=== PATIENT | male | born 1950 | race Caucasian/White ===

== ENCOUNTER 2018-05-28 12:15 | Emergency (ER) | payer MEDICARE ==
[~2018-05-28] VITALS: Ht 193 cm; Wt 109.0 kg
[~2018-05-28 12:15] MED LIST: CARV6.252 PO; FURO-93 PO; GABA100C PO; LISI5TAB7 PO; PHEN100C4 PO; SIMV40TA3 PO
[2018-05-28 12:20] VITALS: BP 139/94
[2018-05-28 12:57] LABS: MICROSCOPIC AUTO
[2018-05-28 12:58] LABS: CULTURE INDICATED? YES
[2018-05-28] MEDS ORDERED: CEFDINIR 300 MG CAPSULE ONE (13:25)
[2018-05-28] MEDS ORDERED: CEFDINIR 300 MG CAPSULE PO SCH (13:30)
== END 2018-05-28 14:42 | disposition home or self-care (01) ==
LOC: ED 14:30
DX: T83.511A Infection and inflammatory reaction due to indwelling urethral catheter, initial encounter (principal); N39.0 Urinary tract infection, site not specified; T83.091A Other mechanical complication of indwelling urethral catheter, initial encounter; E78.5 Hyperlipidemia, unspecified; I10 Essential (primary) hypertension
CPT/HCPCS: 51702; 81001; 87077; 87086; 87186; 99284

== ENCOUNTER 2018-09-30 20:23 | Emergency (ER) | payer MEDICARE ==
[~2018-09-30] VITALS: Ht 185.4 cm; Wt 130.0 kg
[2018-09-30 21:55] LABS: CULTURE INDICATED? YES; MICROSCOPIC INDICATED
[2018-09-30] MEDS ORDERED: CIPROFLOXACIN 500 MG TABLET ONE (22:23)
[2018-09-30] MEDS ORDERED: CIPROFLOXACIN 500 MG TABLET PO ONE (22:30)
[2018-09-30 22:53] VITALS: BP 148/70
== END 2018-09-30 23:37 | disposition home or self-care (01) ==
LOC: ED 22:10
DX: T83.091A Other mechanical complication of indwelling urethral catheter, initial encounter (principal); N40.1 Benign prostatic hyperplasia with lower urinary tract symptoms; R33.8 Other retention of urine; N10 Acute pyelonephritis; N30.01 Acute cystitis with hematuria; I10 Essential (primary) hypertension
CPT/HCPCS: 51702; 81001; 87077; 87086; 87186; 99283